=== PATIENT | male | born 1955 | race Caucasian/White ===

== ENCOUNTER → 2019-08-16 | Outpatient (CLI) | payer OTHER ==
--- NOTE | 2019-08-16 08:50 | RAD ---
ABDOMEN COMPLETE History: Cirrhosis Comparison: None. Technique: Sonographic examination of the abdomen was performed and multiple grayscale and color Doppler static images were obtained. Findings: Coarse heterogeneous nodular liver. The liver measures 20.4 cm. Patent portal vein. Common bile duct measures 2.5 mm in diameter. Gallbladder wall is normal. No cholelithiasis or pericholecystic fluid. Visualized pancreas is is not well seen due to overlying bowel gas. The right kidney measures 12.8 x 5.0 x 5.1 cm. No hydronephrosis. The left kidney measures 14.7 x 5.1 x 5.5 cm. No hydronephrosis. Hypoechoic lesion exophytic within the mid left kidney measures 1.1 x 1.0 x 1.0 cm. The spleen measures 16.3 cm. Aorta and IVC not well seen due to overlying bowel gas. No ascites. IMPRESSION: 1. Hepatomegaly with coarse heterogeneous appearance, compatible with cirrhosis. 2. Splenomegaly. 3. Small hypoechoic left renal lesion, may represent complicated cyst. Recommend comparison with prior imaging studies. If prior imaging studies are not available, recommend renal protocol CT to exclude solid mass. Electronically signed by: Iggy Mahajan DO (08/16/2019 8:47 AM) [id number]
== END | disposition home or self-care (01) ==
LOC: US 07:48
PROVIDERS: ATTEND Internal Medicine
DX: R16.2 Hepatomegaly with splenomegaly, not elsewhere classified (principal); N28.89 Other specified disorders of kidney and ureter
CPT/HCPCS: 76700

== ENCOUNTER → 2020-08-23 | Outpatient (CLI) | payer OTHER ==
--- NOTE | 2020-08-23 08:41 | RAD ---
EXAM: Abdomen sonogram. HISTORY: Cirrhosis. TECHNIQUE: Sonographic imaging of the abdomen was performed. COMPARISON: 08/16/2019. FINDINGS: The liver is enlarged. There is heterogeneous hepatic echotexture and hepatic surface nodul arity due to cirrhosis. No focal hepatic lesion is seen. The common bile duct is normal in caliber. T he gallbladder is unremarkable. The pancreas is partially obscured due to bowel gas. The inferior yandy a cava is patent. The spleen is not assessed. The right kidney is normal in size. There is no hydrone phrosis. IMPRESSION: 1. Hepatomegaly and hepatic cirrhosis. No focal hepatic lesion is seen sonographically. Note is made that MRI is more sensitive for small lesions in the setting of cirrhosis. 2. Obscured pancreas due to bowel gas. 3. Note is made that the left kidney and spleen are not assessed on this exam. Electronically signed by: Shahida Awad MD (08/23/2020 8:39 AM) [id number]
== END ==
LOC: US 07:38
PROVIDERS: ATTEND Internal Medicine
DX: K74.60 Unspecified cirrhosis of liver (principal); R16.0 Hepatomegaly, not elsewhere classified
CPT/HCPCS: 76705

== ENCOUNTER → 2020-09-03 | Outpatient (CLI) | payer OTHER ==
[~2020-09-03] MED LIST: IOHEXOL 300 MG/ML 75 ML VIAL. IV ONE
[2020-09-03 08:55] LABS: BASO % 0 % (0-3); EOS # 0.1 x10^3/uL (0.0-0.7); EOS % 1 % (0-3); HEMATOCRIT 44.7 % (39.0-53.0); HEMOGLOBIN 14.7 g/dL (13.0-17.5); LYMPH # 1.7 x10^3/uL (1.0-4.8); LYMPH % 32 % (24-48); MEAN CORPUSCULAR HEMOGLOBIN 28 pg (25-35); MEAN CORPUSCULAR HGB CONC 33 g/dL (31-37); MEAN CORPUSCULAR VOLUME 85 fL (79-100); MONO # 0.5 x10^3/uL (0.0-1.1); MONO % 9 % (0-9); NEUT % 58 % (31-73); PLATELET COUNT 150 x10^3/uL (140-400); RED BLOOD COUNT 5.26 x10^6/uL (4.30-5.70); RED CELL DISTRIBUTION WIDTH 14.4 % (11.5-14.5); WHITE BLOOD COUNT 5.2 x10^3/uL (4.0-11.0)
[2020-09-03 09:12] LABS: ALBUMIN 3.9 g/dL (3.4-5.0); CALCIUM 8.8 mg/dL (8.5-10.1); CREATININE 0.9 mg/dL (0.7-1.3); TOTAL PROTEIN 7.8 g/dL (6.4-8.2)
--- NOTE | 2020-09-03 09:48 | RAD ---
PQRS Compliance Statement: One or more of the following individualized dose reduction techniques were utilized for this examinat ion: 1. Automated exposure control 2. Adjustment of the mA and/or kV according to patient size 3. Use of iterative reconstruction technique CT ABDOMEN+PELVIS WO+W 09/03/2020 8:39 AM Indication: Renal cyst COMPARISON: Ultrasound abdomen 08/16/2019, 08/23/2020. TECHNIQUE: Multiple axial CT images of the abdomen and pelvis were obtained before and after the admi nistration of intravenous contrast. Coronal and sagittal reformats are provided. FINDINGS: Lung bases are clear. Heart size within normal limits. Nodular contour of the hepatic parenchyma is s uggestive of cirrhosis. No definite suspicious hepatic masses are identified. Splenomegaly measuring 15.3 cm in oblique craniocaudal dimension. Adrenal glands, pancreas and gallbladder are normal in cathy earance. Abdominal aorta is normal in course and caliber. There is a portacaval lymph node measuring 1.3 cm, likely reactive. Additional periportal lymph node measures 1.5 cm (series 5, image 28). No fr ee fluid or free intraperitoneal air. Small and large bowel are normal in caliber. There is no eviden ce for bowel obstruction. There are no pericolonic inflammatory changes. A normal, nondilated appendi x is visualized without adjacent inflammatory changes. The kidneys enhance symmetrically. There is no suspicious renal mass. There is no hydronephrosis. The re are no suspected calculi within the kidneys, ureters or urinary bladder. There is a simple cyst in the superior pole the right kidney measuring 1.5 cm (-12 Hounsfield units). In the lateral interpola r left kidney there is a simple cyst measuring 1.4 cm (-1.5 Hounsfield unit). Opacified renal collect ing systems and ureters are normal without urothelial thickening. Urinary bladder is within normal li mits given degree of distention. Prostate is enlarged measuring 5.7 x 5.9 cm in transaxial dimensions . Small fat-containing left inguinal hernia. No suspicious osseous abnormality. IMPRESSION: No suspicious renal lesion. Simple cysts are identified in the kidneys bilaterally. Cirrhosis with stigmata of portal hypertension. Splenomegaly. No definite suspicious hepatic mass is identified. Further evaluation with abdominal MRI with and without contrast could be of benefit. Port al venous system appears widely patent. Mildly enlarged portacaval and periportal lymph nodes may be reactive. Prostatomegaly. Electronically signed by: Nicolle Segura MD (09/03/2020 9:46 AM) [id number]
[2020-09-03 20:06] LABS: AFPT MARKER 6.7 ng/mL (0.0-8.3)
== END ==
LOC: CT 07:58
PROVIDERS: ATTEND Internal Medicine
DX: N40.0 Benign prostatic hyperplasia without lower urinary tract symptoms (principal); R16.1 Splenomegaly, not elsewhere classified; I10 Essential (primary) hypertension
CPT/HCPCS: 36415; 74178; 80053; 82105; 84590; 85025; 85610; Q9967

== ENCOUNTER → 2021-03-17 | Outpatient (CLI) | payer MEDICARE, OTHER ==
--- NOTE | 2021-03-17 15:31 | RAD ---
US ABDOMEN OR LOWER BACK LIMITED History: Reason: Hepatic Cirrhosis; / Spl. Instructions: / History: Comparison: CT September 03, 2020. Ultrasound August 23, 2020. Technique: Transabdominal ultrasound images are obtained of the right upper quadrant. Findings: Liver is heterogeneous increased in echogenicity and coarse contour. Right hepatic lobe measures 19.2 cm. Portal flow is hepatopedal. No cholelithiasis, gallbladder wall thickening or pericholecystic fluid. Common bile duct measures 3 mm in diameter. Visualized pancreas not well seen due to overlying bowel gas. The right kidney measures 13.9 x 4.5 x 5.4 cm. No hydronephrosis. Aorta and IVC not well seen due to overlying bowel gas. IMPRESSION: 1. Hepatic cirrhosis. No focal liver lesion identified. Electronically signed by: Iggy Mahajan DO (03/17/2021 3:28 PM) [id number]
== END ==
LOC: US 07:45
PROVIDERS: ATTEND Internal Medicine
DX: K74.60 Unspecified cirrhosis of liver (principal)
CPT/HCPCS: 76705

== ENCOUNTER → 2021-04-01 | Outpatient (CLI) | payer MEDICARE, OTHER ==
[2021-04-01 09:10] LABS: BASO % 0 % (0-3); EOS # 0.1 x10^3/uL (0.0-0.7); EOS % 1 % (0-3); HEMATOCRIT 38.8 % (39.0-53.0); HEMOGLOBIN 12.4 g/dL (13.0-17.5); LYMPH # 1.2 x10^3/uL (1.0-4.8); LYMPH % 32 % (24-48); MEAN CORPUSCULAR HEMOGLOBIN 25 pg (25-35); MEAN CORPUSCULAR HGB CONC 32 g/dL (31-37); MEAN CORPUSCULAR VOLUME 79 fL (79-100); MONO # 0.3 x10^3/uL (0.0-1.1); MONO % 8 % (0-9); NEUT # 2.3 x10^3uL (1.8-7.7); NEUT % 59 % (31-73); PLATELET COUNT 109 x10^3/uL (140-400); RED BLOOD COUNT 4.89 x10^6/uL (4.30-5.70); RED CELL DISTRIBUTION WIDTH 14.8 % (11.5-14.5)
[2021-04-01 09:34] LABS: ALBUMIN 4.1 g/dL (3.4-5.0); ALBUMIN/GLOBULIN RATIO 1.2 (1.0-1.7); CALCIUM 8.5 mg/dL (8.5-10.1); CREATININE 0.9 mg/dL (0.7-1.3); GFR 84.7; POTASSIUM 4.2 mmol/L (3.5-5.1); TOTAL BILIRUBIN 0.6 mg/dL (0.2-1.0); TOTAL PROTEIN 7.4 g/dL (6.4-8.2)
[2021-04-02 00:25] LABS: AFPT MARKER 6.9 ng/mL (0.0-8.3)
== END ==
LOC: LAB 07:56
PROVIDERS: ATTEND Internal Medicine
DX: K74.60 Unspecified cirrhosis of liver (principal)
CPT/HCPCS: 36415; 80053; 82105; 82306; 84590; 85025; 85610